=== PATIENT | male | born 1930 | race Caucasian/White ===

== ENCOUNTER 2016-05-02 12:14 | Emergency (ER) | payer MEDICARE, OTHER ==
[2016-05-02] MEDS ORDERED: SODIUM CHLORIDE 0.9% 1,000 ML IV ONE (12:54)
[2016-05-02] MEDS ORDERED: SODIUM CHLORIDE 0.9% 500 ML IV ONE (12:54)
== END 2016-05-02 15:55 | disposition home or self-care (01) ==
DX: E86.0 Dehydration (principal); Z91.81 History of falling; F03.90 Unspecified dementia, unspecified severity, without behavioral disturbance, psychotic disturbance, mood disturbance, and anxiety; I25.2 Old myocardial infarction; Z79.01 Long term (current) use of anticoagulants; Z95.1 Presence of aortocoronary bypass graft; Z95.5 Presence of coronary angioplasty implant and graft; Z87.891 Personal history of nicotine dependence

== ENCOUNTER 2016-05-10 | Outpatient (CLI) | payer MEDICARE, OTHER | END 2016-05-10 03:12 | disposition critical access hospital (66) | CPT/HCPCS: A0425; A0427 ==

== ENCOUNTER 2016-05-10 03:36 | Inpatient (IN) | payer MEDICARE, OTHER ==
[2016-05-10] MEDS ORDERED: IPRATROPIUM/ALBUTEROL 3 ML NEB INH STA (03:45)
[2016-05-10] MEDS ORDERED: SODIUM CHLORIDE 0.9% 1,000 ML IV ONE (03:45)
[2016-05-10] MEDS ORDERED: DEXAMETHASONE 10 MG/ML VIAL IVP STA (03:45)
[2016-05-10] MEDS ORDERED: IPRATROPIUM/ALBUTEROL 3 ML NEB INH ONE (03:51)
[2016-05-10] MEDS ORDERED: DEXAMETHASONE 10 MG/ML VIAL ONE (03:52)
[2016-05-10] MEDS ORDERED: AZITHROMYCIN INJ 500 MG in SODIUM CHLORIDE 0.9% 250 ML IV STA (05:11)
[2016-05-10] MEDS ORDERED: cefTRIAXone 1 GM in SODIUM CHLORIDE 0.9% MINIBAG 100 ML IV STA (05:11)
[2016-05-10] MEDS ORDERED: cefTRIAXone 1 GM VIAL ONE (05:15)
[2016-05-10] MEDS: CLINDAMYCIN 900 MG/50 ML 50 ML IV SCH ×3 (07:29→22:48)
[2016-05-10] MEDS: SODIUM CHLORIDE FLUSH 0.9% 10 ML SYRINGE IVP SCH ×3 (07:29→22:57)
[2016-05-10] MEDS ORDERED: NITROGLYCERIN SL 0.4 MG TABLET SL PRN (08:47)
[2016-05-10] MEDS: FAMOTIDINE 20 MG/50 ML 50 ML IV SCH (08:54)
[2016-05-10] MEDS: FUROSEMIDE 40 MG/4 ML VIAL IVP SCH ×2 (08:55→20:51)
[2016-05-10] MEDS: SODIUM CHLORIDE FLUSH 0.9% 10 ML SYRINGE IVP PRN ×2 (09:00→20:50)
[2016-05-10] MEDS ORDERED: ATENOLOL 25 MG TABLET PO SCH (09:00)
[2016-05-10] MEDS ORDERED: [UNRECOGNIZED DRUG - OTHER] PO SCH (09:00)
[2016-05-10] MEDS ORDERED: LISINOPRIL PO SCH (09:00)
[2016-05-10] MEDS ORDERED: HYDROCHLOROTHIAZIDE PO SCH (09:00)
[2016-05-10] MEDS: ATENOLOL 25 MG TABLET PO SCH (12:07)
[2016-05-10] MEDS: POLYETHYLENE GLYCOL 3350 17 GM PACKET PO SCH (12:08)
[2016-05-10] MEDS: MEMANTINE 5 MG TABLET PO SCH ×2 (12:08→20:51)
[2016-05-10] MEDS: LOSARTAN 50 MG TABLET PO SCH (12:08)
[2016-05-10] MEDS: RIVAROXABAN 15 MG TABLET PO SCH (15:33)
[2016-05-10] MEDS: POTASSIUM CHLOR 10 MEQ/100 ML 100 ML IV SCH ×6 (15:48→21:48)
[2016-05-10] MEDS: POTASSIUM CHLORIDE 10 MEQ CAPSULE PO SCH (17:20)
[2016-05-10] MEDS: ATORVASTATIN 10 MG TABLET PO SCH (20:50)
[2016-05-10] MEDS ORDERED: MIN OIL/DIMETHICON/COCONUT OIL 92 GM TUBE TOP ONE (21:44)
[2016-05-11] MEDS ORDERED: FLUTICASONE NASAL SPRAY NAS PRN (00:56)
[2016-05-11] MEDS ORDERED: LABETALOL 20 MG/4 ML SYRINGE IVP SCH (00:57)
[2016-05-11] MEDS: SODIUM CHLORIDE FLUSH 0.9% 10 ML SYRINGE IVP SCH ×3 (05:33→21:34)
[2016-05-11] MEDS: CLINDAMYCIN 900 MG/50 ML 50 ML IV SCH ×3 (05:33→21:33)
[2016-05-11] MEDS: FAMOTIDINE 20 MG/50 ML 50 ML IV SCH (08:49)
[2016-05-11] MEDS: FUROSEMIDE 40 MG/4 ML VIAL IVP SCH ×2 (08:50→20:34)
[2016-05-11] MEDS: SODIUM CHLORIDE FLUSH 0.9% 10 ML SYRINGE IVP PRN ×2 (08:50→21:33)
[2016-05-11] MEDS ORDERED: AZITHROMYCIN INJ 250 MG in SODIUM CHLORIDE 0.9% 250 ML IV SCH (09:00)
[2016-05-11] MEDS ORDERED: cefTRIAXone 1 GM in SODIUM CHLORIDE 0.9% MINIBAG 100 ML IV SCH (09:00)
[2016-05-11] MEDS: cefTRIAXone 1 GM in SODIUM CHLORIDE 0.9% MINIBAG 100 ML IV SCH (09:50)
[2016-05-11] MEDS: AZITHROMYCIN INJ 250 MG in SODIUM CHLORIDE 0.9% 250 ML IV SCH (10:35)
[2016-05-11] MEDS: POTASSIUM CHLORIDE 10 MEQ CAPSULE PO SCH ×4 (12:00→18:50)
[2016-05-11] MEDS: LOSARTAN 50 MG TABLET PO SCH (12:01)
[2016-05-11] MEDS: ATENOLOL 25 MG TABLET PO SCH (12:01)
[2016-05-11] MEDS: hydroCHLOROthiazide 12.5 MG CAPSULE PO SCH (12:01)
[2016-05-11] MEDS: MEMANTINE 5 MG TABLET PO SCH ×2 (12:01→20:34)
[2016-05-11] MEDS: POLYETHYLENE GLYCOL 3350 17 GM PACKET PO SCH (12:02)
[2016-05-11] MEDS: TAMSULOSIN 0.4 MG CAPSULE PO SCH (12:02)
[2016-05-11] MEDS: RIVAROXABAN 15 MG TABLET PO SCH (18:50)
[2016-05-11] MEDS: ATORVASTATIN 10 MG TABLET PO SCH (20:34)
[2016-05-11] MEDS ORDERED: clonazePAM 0.5 MG TABLET PO PRN (21:00)
[2016-05-12] MEDS: CLINDAMYCIN 900 MG/50 ML 50 ML IV SCH ×3 (05:55→21:46)
[2016-05-12] MEDS: SODIUM CHLORIDE FLUSH 0.9% 10 ML SYRINGE IVP SCH ×3 (05:56→21:47)
[2016-05-12] MEDS: cefTRIAXone 1 GM in SODIUM CHLORIDE 0.9% MINIBAG 100 ML IV SCH (08:34)
[2016-05-12] MEDS: POLYETHYLENE GLYCOL 3350 17 GM PACKET PO SCH (08:35)
[2016-05-12] MEDS: FAMOTIDINE 20 MG/50 ML 50 ML IV SCH (08:35)
[2016-05-12] MEDS: hydroCHLOROthiazide 12.5 MG CAPSULE PO SCH (08:36)
[2016-05-12] MEDS: LOSARTAN 50 MG TABLET PO SCH (08:36)
[2016-05-12] MEDS: TAMSULOSIN 0.4 MG CAPSULE PO SCH (08:36)
[2016-05-12] MEDS: POTASSIUM CHLORIDE 10 MEQ CAPSULE PO SCH ×3 (08:36→17:09)
[2016-05-12] MEDS: FUROSEMIDE 40 MG/4 ML VIAL IVP SCH (08:36)
[2016-05-12] MEDS: MEMANTINE 5 MG TABLET PO SCH ×2 (08:36→21:46)
[2016-05-12] MEDS: ATENOLOL 25 MG TABLET PO SCH (08:36)
[2016-05-12] MEDS: POTASSIUM CHLOR 10 MEQ/100 ML 100 ML IV SCH ×4 (10:06→13:59)
[2016-05-12] MEDS: AZITHROMYCIN INJ 250 MG in SODIUM CHLORIDE 0.9% 250 ML IV SCH (10:06)
[2016-05-12] MEDS ORDERED: POTASSIUM CHLORIDE 10 MEQ CAPSULE PO ONE (10:15)
[2016-05-12] MEDS: DOCUSATE SODIUM 250 MG CAPSULE PO SCH (11:57)
[2016-05-12] MEDS: SENNA 8.6 MG TABLET PO SCH (11:57)
[2016-05-12] MEDS: RIVAROXABAN 15 MG TABLET PO SCH (17:08)
[2016-05-12] MEDS ORDERED: MAGNESIUM HYDROXIDE 2,400 MG/30 ML UDC PO ONE (17:30)
[2016-05-12] MEDS: ATORVASTATIN 10 MG TABLET PO SCH (21:46)
[2016-05-13] MEDS: CLINDAMYCIN 900 MG/50 ML 50 ML IV SCH (05:17)
[2016-05-13] MEDS: SODIUM CHLORIDE FLUSH 0.9% 10 ML SYRINGE IVP SCH (06:35)
[2016-05-13] MEDS: POLYETHYLENE GLYCOL 3350 17 GM PACKET PO SCH (08:45)
[2016-05-13] MEDS: ATENOLOL 25 MG TABLET PO SCH (08:45)
[2016-05-13] MEDS: FAMOTIDINE 20 MG/50 ML 50 ML IV SCH (08:45)
[2016-05-13] MEDS: POTASSIUM CHLORIDE 10 MEQ CAPSULE PO SCH (08:45)
[2016-05-13] MEDS: SENNA 8.6 MG TABLET PO SCH (08:45)
[2016-05-13] MEDS: cefTRIAXone 1 GM in SODIUM CHLORIDE 0.9% MINIBAG 100 ML IV SCH (08:45)
[2016-05-13] MEDS: hydroCHLOROthiazide 12.5 MG CAPSULE PO SCH (08:46)
[2016-05-13] MEDS: LOSARTAN 50 MG TABLET PO SCH (08:46)
[2016-05-13] MEDS: TAMSULOSIN 0.4 MG CAPSULE PO SCH (08:46)
[2016-05-13] MEDS: DOCUSATE SODIUM 250 MG CAPSULE PO SCH (08:46)
[2016-05-13] MEDS: MEMANTINE 5 MG TABLET PO SCH (08:48)
[2016-05-13] MEDS ORDERED: DOCUSATE SODIUM 250 MG CAPSULE PO SCH (09:00)
[2016-05-13] MEDS ORDERED: FUROSEMIDE 40 MG/4 ML VIAL IVP SCH (09:00)
[2016-05-13] MEDS ORDERED: SENNA 8.6 MG TABLET PO SCH (09:00)
== END 2016-05-13 11:32 | DRG 871 ==
DX: A41.9 Sepsis, unspecified organism (principal); R40.0 Somnolence; J18.1 Lobar pneumonia, unspecified organism; J96.01 Acute respiratory failure with hypoxia; I10 Essential (primary) hypertension; I25.2 Old myocardial infarction; E87.1 Hypo-osmolality and hyponatremia; J90 Pleural effusion, not elsewhere classified; I11.0 Hypertensive heart disease with heart failure; I50.9 Heart failure, unspecified; Z91.81 History of falling; I25.10 Atherosclerotic heart disease of native coronary artery without angina pectoris; F03.90 Unspecified dementia, unspecified severity, without behavioral disturbance, psychotic disturbance, mood disturbance, and anxiety; N40.0 Benign prostatic hyperplasia without lower urinary tract symptoms; Z66 Do not resuscitate; Z95.1 Presence of aortocoronary bypass graft; Z95.5 Presence of coronary angioplasty implant and graft; Z87.891 Personal history of nicotine dependence; Z79.01 Long term (current) use of anticoagulants

== ENCOUNTER 2016-05-13 | Outpatient (CLI) | payer MEDICARE, OTHER | END 2016-05-13 11:36 | CPT/HCPCS: A0425; A0428 ==

== ENCOUNTER 2016-06-25 | Outpatient (CLI) | payer MEDICARE, OTHER | END 2016-06-25 18:34 | disposition E | DX: I46.9 Cardiac arrest, cause unspecified (principal) | CPT/HCPCS: A0425; A0429 ==